=== PATIENT | male | born 1945 | race Caucasian/White ===

== ENCOUNTER 2022-06-04 13:33 | Emergency (ER) | payer MEDICARE, OTHER ==
[2022-06-04] MEDS ORDERED: predniSONE 20 MG TAB ONE (14:27)
== END 2022-06-04 14:30 | disposition home or self-care (01) ==
LOC: BURERS 13:33
DX: M25.462 Effusion, left knee (principal); I10 Essential (primary) hypertension; M10.9 Gout, unspecified
CPT/HCPCS: 99283; J7512